=== PATIENT | female | born 1995 | race American Indian/Alaskan Native ===

== ENCOUNTER 2019-05-15 14:52 | Outpatient (CLI) | payer MEDICAID ==
[2019-05-15 16:35] LABS: Bacteria,Urine 3+ /HPF (Negative); Bilirubin,Urine NEG (Negative); Blood,Urine NEG (Negative); Color,Urine Yellow (Yellow); Mucus,Urine FEW /HPF; Protein,Urine <15 mg/dL mg/dL (Negative); Urobilinogen,Urine < 2.0 mg/dL (<2.0)
[2019-05-15 16:44] LABS: Hematocrit 37.9 % (30.3-42.9); Hemoglobin 12.9 gm/dl (10.1-14.3); Mean Corpuscular HGB Conc 34 % (30-34); Mean Corpuscular Volume 91 fl (79-97); Platelet Count 194 K/mm3 (140-440); Red Blood Count 4.16 M/mm3 (3.65-5.03); Red Cell Distribution Width 13.4 % (13.2-15.2)
[2019-05-15 17:08] LABS: Alanine Aminotransferase 15 units/L (7-56); Uric Acid 3.7 mg/dL (3.5-7.6)
--- NOTE | 2019-05-15 17:08 | Event Note ---
Date: 05/15/19 Patient presented stating she felt moist however does not feel she's ROM. States she was told she was 3cm dilated yesterday by Dr. Lentz and her heart was elevated b/c she was dehydrated. Here shewas noted to have elevated BP's however labs appear normal, she voiced no complaints of PIH symptoms. HRT low 100, FHT's cat 1 no UC, cervix 2.5 per RN, Will allow home if LFT's within normal limits and BP's normal. She voiced understanding and agrees with POC.
[2019-05-15 17:42] VITALS: BP 138/93
--- NOTE | 2019-05-15 18:12 | Event Note ---
Date: 05/15/19 BP's elevated again, she denies CHTN, concern for GHTN and need for induction. Findings and recommendation for delivery discussed. Patient states she wants to leave to go to [place] to be delivered by her MD, Dr. Kelly Lentz. S/w Dr. Lentz who will accept patient as transfer. Explained to patient she needs to be delviered or transferred to [place] by ambulance, she states she will leave AMA b/c her boyfriend is with her. She was informed of risk for early placental separation, stroke, or maternal demise of brain damage if she leaves un attended. Patient voiced understanding and will leave AMA.
== END 2019-05-15 18:30 | disposition left against medical advice (07) ==
LOC: TRG 14:52
PROVIDERS: ATTEND Obstetrics & Gynecology
DX: O62.9 Abnormality of forces of labor, unspecified (principal); Z3A.36 36 weeks gestation of pregnancy
CPT/HCPCS: 36415; 59025; 81001; 82565; 83615; 84450; 84460; 84550; 85027; 86850; 86900; 86901; 87086